=== PATIENT | male | born 1960 | race Caucasian/White ===

== ENCOUNTER 2018-03-09 20:46 | Emergency (ER) | payer OTHER ==
[2018-03-09 21:13] VITALS: BP 123/64
[2018-03-09] MEDS ORDERED: Ondansetron INJ* 2 MG/ML VIAL IV ONE (21:50)
[2018-03-09] MEDS ORDERED: Ondansetron INJ* 2 MG/ML VIAL IM ONE (21:59)
--- NOTE | 2018-03-09 22:07 | ED ---
Nausea/Vomiting/Diarrhea HPI - HPI Summary HPI Summary: 58 yo WM h/o hypothyroidism and DM c/o nausea and vomiting x 4 episodes today associated with chills, denies diarrhea - History of Current Complaint Chief Complaint: UCGI Stated Complaint: VOMITING Time Seen by Provider: 03/09/18 21:41 Hx Obtained From: Patient Hx From Patient Unobtainable Due To: Other Onset/Duration: Sudden Onset Severity Initially: Moderate Severity Currently: Moderate Pain Intensity: 4 - Allergies/Home Medications Allergies/Adverse Reactions: Allergies Allergy/AdvReac Type Severity Reaction Status Date / Time No Known Allergies Allergy Verified 03/09/18 21:13 Home Medications: Home Medications Allergy Med* 03/09/18 [History] Cholecalciferol (Vitamin D3) [Vitamin D3] 03/09/18 [History] Cyanocobalamin TAB* [Vitamin B12 TAB*] 03/09/18 [History] Gabapentin CAP(*) [Neurontin 100 mg CAP(*)] 600 mg PO BEDTIME 03/09/18 [History Confirmed 03/09/18] Levothyroxine TAB* [Synthroid 125 MCG TAB*] 125 mcg PO DAILY 03/09/18 [History Confirmed 03/09/18] Melatonin 03/09/18 [History] Multivitamin [Multivitamins] 1 cap PO DAILY 03/09/18 [History Confirmed 03/09/18 ] Naproxen Sodium [Aleve] 03/09/18 [History Confirmed 03/09/18] PMH/Surg Hx/FS Hx/Imm Hx Previously Healthy: Yes Endocrine/Hematology History: Reports: Hx Diabetes Cardiovascular History: Denies: Hx Hypertension, Hx Pacemaker/ICD Respiratory History: Denies: Hx Asthma History: Denies: Hx Dialysis, Hx Renal Disease Sensory History: Denies: Hx Hearing Aid Psychiatric History: Denies: Hx Panic Disorder Infectious Disease History: No Infectious Disease History: Denies: Traveled Outside the [place] in Last 30 Days - Social History Alcohol Use: Occasionally Substance Use Type: Reports: None Smoking Status (MU): Never Smoked Tobacco Review of Systems Positive: Chills Eyes: Negative ENT: Negative Cardiovascular: Negative Respiratory: Negative Positive: Vomiting, Nausea. Negative: Abdominal Pain, Diarrhea Genitourinary: Negative Musculoskeletal: Negative Skin: Negative Neurological: Negative All Other Systems Reviewed And Are Negative: Yes Physical Exam Triage Information Reviewed: Yes Vital Signs On Initial Exam: Initial Vitals Temp Pulse Resp BP Pulse Ox 37.1 C 90 16 123/64 96 03/09/18 21:08 03/09/18 21:08 03/09/18 21:08 03/09/18 21:08 03/09/18 21:08 Vital Signs Reviewed: Yes Appearance: Positive: No Pain Distress Skin: Positive: Warm Eyes: Positive: Normal ENT: Positive: Normal ENT inspection Neck: Positive: Supple Respiratory/Lung Sounds: Positive: Clear to Auscultation Cardiovascular: Positive: Normal Abdomen Description: Positive: Nontender, Soft Musculoskeletal: Positive: Normal Neurological: Positive: Normal AVPU Assessment: Alert Diagnostics - Vital Signs Vital Signs Temp Pulse Resp BP Pulse Ox 03/09/18 21:08 37.1 C 90 16 123/64 96 - Laboratory Lab Statement: Any lab studies that have been ordered have been reviewed, and results considered in the medical decision making process. Naus/Vom/Diarrhea Course/Dx - Course Course Of Treatment: acute nausea and vomiting may be associated with acute virally mediated GI organism. Symptomatic tx for now and RTC if sx worsen Discharge - Sign-Out/Discharge Documenting (check all that apply): Discharge/Admit/Transfer - Discharge Plan Condition: Stable Disposition: HOME Prescriptions: Ondansetron ODT TAB* [Zofran 4 MG Odt TAB*] 4 mg PO Q6H PRN 5 Days #20 tab.odt PRN Reason: Nausea Patient Education Materials: Acute Nausea and Vomiting (ED) Referrals: Trung Mari MD [Primary Care Provider] - - Billing Disposition and Condition Condition: STABLE Disposition: HOME
[2018-03-09] MEDS ORDERED: Ondansetron ODT TAB* 4 MG SL ONE (22:08)
== END 2018-03-09 22:24 | disposition home or self-care (01) ==
LOC: UCEAST 20:46
DX: R11.2 Nausea with vomiting, unspecified (principal); R68.83 Chills (without fever); E11.9 Type 2 diabetes mellitus without complications; E03.9 Hypothyroidism, unspecified
CPT/HCPCS: 99212; A9270-GY; G0463; J2405

== ENCOUNTER 2019-06-15 23:52 | Observation (INO) | payer OTHER ==
[2019-06-16] MEDS ORDERED: NS 0.9% 1000 ML** 2,000 ML IV ONE ×2 (00:05→00:57)
[2019-06-16] MEDS ORDERED: Ondansetron ODT TAB* 4 MG SL ONE (00:07)
[2019-06-16] MEDS ORDERED: Aspirin 81 mg CHEW TAB* 81 MG TAB.CHEW PO ONE ×2 (00:08→00:17)
[2019-06-16] MEDS ORDERED: Nitroglycerin TAB 0.4 MG* 0.4 MG TAB SL ONE (00:08)
--- NOTE | 2019-06-16 00:09 | ED ---
HPI Chest Pain - HPI Summary HPI Summary: This pt is a 59 y/o male presenting to [facility] via EMS for left sided chest pain today. Pt reports he began to have nausea and vomiting at around 19:00. After vomiting he began to experience pain on the left shoulder that was more of an ache. His pain then began moving down to the left anterior chest. He notes this pain was more intense. He notes his pain radiates down his left arm and neck. Pt states he has some abd soreness. PMHx DM, hypothyroid, CML (currently on Gleevec). Pt denies smoking. - History of Current Complaint Time Seen by Provider: 06/15/19 23:56 Hx Obtained From: Patient Onset/Duration: Started Hours Ago, Still Present Timing: Lasting Hours Current Severity: Moderate Pain Intensity: 7 Pain Scale Used: 0-10 Numeric Chest Pain Location: Left Anterior Chest Pain Radiates: Yes Chest Pain Radiates To:: Arm - left, Neck - left Aggravating Factor(s): Nothing Alleviating Factor(s): Nothing Associated Signs and Symptoms: Positive: Chest Pain, Nausea, Abdominal Pain, Vomiting. Negative: Fever, Chills - Allergy/Home Medications Allergies/Adverse Reactions: Allergies Allergy/AdvReac Type Severity Reaction Status Date / Time No Known Allergies Allergy Verified 03/09/18 21:13 Home Medications: Home Medications Allopurinol TAB* [Zyloprim 300 MG TAB*] 300 mg PO BID 06/16/19 [History Confirmed 06/16/19] Aspirin EC TAB* [Ecotrin EC Low Dose 81 MG*] 81 mg PO DAILY 06/16/19 [History Confirmed 06/16/19] Cetirizine* [ZyrTEC 10 MG TAB*] 10 mg PO DAILY PRN 06/16/19 [History Confirmed 06/16/19] Imatinib Mesylate 400 mg PO DAILY 06/16/19 [History Confirmed 06/16/19] PMH/Surg Hx/FS Hx/Imm Hx Endocrine/Hematology History: Reports: Hx Diabetes, Hx Thyroid Disease - Hypothyroidism Cardiovascular History: Denies: Hx Hypertension, Hx Pacemaker/ICD Respiratory History: Denies: Hx Asthma History: Denies: Hx Dialysis, Hx Renal Disease Sensory History: Denies: Hx Hearing Aid Psychiatric History: Denies: Hx Panic Disorder - Cancer History Cancer Type, 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 Father with emphysema (smoker) - Social History Alcohol Use: Occasionally Substance Use Type: Reports: None Smoking Status (MU): Never Smoked Tobacco Review of Systems Negative: Fever Positive: Chest Pain Positive: Abdominal Pain, Vomiting, Nausea All Other Systems Reviewed And Are Negative: Yes Physical Exam - Summary Physical Exam Summary: Appearance: Somewhat ill appearing man lying in the stretcher in no acute distress Skin: Warm, dry, no obvious rash Eyes: sclera anicteric, no conjunctival pallor ENT: mucous membranes moist, pharynx appears normal Neck: Supple, nontender Respiratory: Clear to auscultation, no signs of respiratory distress Cardiovascular: Normal S1, S2. No murmurs. Normal distal pulses in tibial and radial bilaterally. Abdomen: Soft, nontender, normal active bowel sounds present Musculoskeletal: Normal, Strength/ROM Intact Neurological: A&Ox3, awake and alert, mentation is normal, speech is fluent and appropriate Psychiatric: affect is normal, does not appear anxious or depressed Triage Information Reviewed: Yes Vital Signs On Initial Exam: Initial Vitals Temp Pulse Resp BP Pulse Ox 98.8 F 89 16 110/46 99 06/15/19 23:54 06/15/19 23:54 06/15/19 23:54 06/15/19 23:54 06/15/19 23:54 Vital Signs Reviewed: Yes Diagnostics - Vital Signs Vital Signs Temp Pulse Resp BP Pulse Ox 06/15/19 23:54 98.8 F 89 16 110/46 99 - Laboratory Result Diagrams: 06/16/19 00:02 06/16/19 04:48 Lab Statement: Any lab studies that have been ordered have been reviewed, and results considered in the medical decision making process. - Radiology Chest XR Radiology Interpretation Completed By: ED Physician Summary of Radiographic Findings: No acute process. - CT Chest CTA CT Interpretation Completed By: Radiologist Summary of CT Findings: IMPRESSION: No aortic dissection or aneurysm. Dr. Edward has reviewed this report. Abdomen CTA CT Interpretation Completed By: Radiologist Summary of CT Findings: IMPRESSION: 1. No abdominal aortic aneurysm or dissection. 2. Narrowing of the proximal celiac artery. 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 Dr. Edward has reviewed this report. - EKG 23:51 Cardiac Rate: NL - at 91 bpm EKG Rhythm: Sinus Rhythm Summary of EKG Findings: NSR at 91 BPM, P waves, QRS complex, and T waves are within normal limits, T waves and intervals are normal, no ischemic changes. This is a normal EKG. Re-Evaluation - Re-Evaluation First Eval Re-Evaluation Time: 00:56 Change: Worse Comment: Patient is still having pain in the chest, from the diaphragm up to his neck in the mid chest. Blood pressure has dropped significantly. Will order CTA of chest for signs of aortic dissection. Chest Pain Course/Dx - Course Assessment/Plan: Pt is a 59 y/o male presenting to [facility] via EMS for left sided chest pain today. Pt reports he began to have nausea and vomiting at around 19: 00. After vomiting he began to experience pain on the left shoulder that was more of an ache. His pain then began moving down to the left anterior chest. Lab results remarkable for WBC of 12.2, hemoglobin of 10.1, hematocrit of 31, creatinine of 1.52, glucose of 527. Chest/Abdomen CTA shows No aortic dissection or aneurysm and 1. No abdominal aortic aneurysm or dissection. 2. Narrowing of the proximal celiac artery. 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 Discussed the case with Dr. Blackburn, hospitalist, who accepted the pt for admission. - Diagnoses Provider Diagnoses: Chest pain, Hypotension - Provider Notifications Discussed Care Of Patient With: Bonita Blackburn - hospitalist Time Discussed With Above Provider: 03:15 Instructed by Provider To: Admit As Inpatient - Critical Care Time Critical Care Time: 30-74 min Discharge - Sign-Out/Discharge Documenting (check all that apply): Patient Departure - Admit to [facility] [place] Patient Received Moderate/Deep Sedation with Procedure: No - Discharge Plan Condition: Stable Disposition: ADMITTED TO [facility] - Billing Disposition and Condition Condition: STABLE Disposition: Admitted to [facility] - Attestation Statements Document Initiated by Scribe: Yes Documenting Scribe: Essence Lyn Provider For Whom Scribe is Documenting (Include Credential): Bernardo Edward MD Scribe Attestation: Essence Garcia, scribed for Bernardo Edward MD on 06/17/19 at 0609. Scribe Documentation Reviewed: Yes Provider Attestation: The documentation as recorded by the elizabethibe, Essence Lyn accurately reflects the service I personally performed and the decisions made by me, Bernardo Edward MD Status of [place] Document: Viewed
[2019-06-16 00:18] LABS: ABS Lymphocytes 0.7 10^3/ul (1.0-4.8); ABS Monocytes 1.5 10^3/ul (0-0.8); ABS Neutrophils 9.9 10^3/ul (1.5-7.7); Hematocrit 31 % (42-52); Hemoglobin 10.1 g/dL (14.0-18.0); Mean Corpuscular HGB Conc 32 g/dL (31-36); Mean Corpuscular Hemoglobin 29 pg (27-31); Mean Corpuscular Volume 88 fL (80-94); Mean Platelet Volume 7.7 fL (7.4-10.4); Platelet Count 145 10^3/uL (150-450); Red Blood Count 3.52 10^6 /uL (4.18-5.48); Red Cell Distribution Width 21 % (10-15); White Blood Count 12.2 10^3/uL (3.5-10.8)
[2019-06-16] MEDS ORDERED: Ondansetron INJ* 2 MG/ML VIAL IV ONE (00:20)
[2019-06-16 00:25] LABS: INR 1.04 (0.82-1.09)
[2019-06-16 00:29] LABS: Albumin 4.2 g/dL (3.2-5.2); Albumin/Globulin Ratio 1.8 (1-3); BUN/Creatinine Ratio 17.8 (8-20); Calcium 9.3 mg/dL (8.6-10.3); EGFR African American 56.7 (>60); EGFR Non-African American 46.9 (>60); Globulin 2.3 g/dL (2-4); Potassium 4.9 mmol/L (3.5-5.0); Total Protein 6.5 g/dL (6.4-8.9)
[2019-06-16 00:31] LABS: Troponin I 0.01 ng/mL (<0.04)
[2019-06-16] MEDS ORDERED: Insulin LISPRO* 1 UNITS UNIT SUBCUT ONE (00:34)
[2019-06-16] MEDS ORDERED: Dextrose 50% VIAL 50 ml IV PUSH PRN ×2 (00:34→05:50)
[2019-06-16] MEDS ORDERED: Iodixanol* (CONTRAST) 320 MG/ML 100 ML SDV IV ONE (01:11)
[2019-06-16 02:53] LABS: Troponin I 0.01 ng/mL (<0.04)
[2019-06-16] MEDS ORDERED: Ondansetron INJ* 2 MG/ML VIAL IV PRN (04:39)
[2019-06-16] MEDS ORDERED: PROCHLORPERAZINE INJ 5 MG/ML 2 ML VIAL IV PRN (04:39)
[2019-06-16] MEDS ORDERED: Melatonin 3 MG TAB PO PRN (04:44)
[2019-06-16] MEDS ORDERED: Lactated Ringers 1000 ML Bag* 1,000 ML IV SCH (05:00)
[2019-06-16] MEDS ORDERED: Insulin IVPB 100 units/100 ml 100 UNITS/100 ML UNIT IV SCH (05:00)
[2019-06-16] MEDS ORDERED: Insulin GLARGINE(*) 1 UNITS UNIT SUBCUT SCH ×3 (06:00→21:00)
[2019-06-16 06:05] LABS: BUN/Creatinine Ratio 20.3 (8-20); EGFR African American 66.1 (>60); EGFR Non-African American 54.7 (>60)
--- NOTE | 2019-06-16 07:50 | PN ---
Subjective Date of Service: 06/16/19 Interval History: HD # 1 on 06/16/19 59M PMH IDDM, hypothyroidism, CML on Gleevac who presented with acute onset N/V accompanied by L sided chest pain. IN ER mild DKA, pt also believes his insulin pump to be malfunctioning, also CTA Chest neg, Abdomen shows incidental finding of ? median arcute, unlikely to contribute to his current presentation, trops neg, he was admitted for CP r/o and tx of his hypergly. Interim, BMP now looks much improved no current gap VSS This morning feeling better, no residual chest pain, reviewed plan, will go for stress, spoke with Dr. Mcadams who left recommendations to Start Lantus 20 U and carb counting per usual on d/c while he trouble shoots with [employer] re pump. Pt himself otherwise doing OK,no other issues no N no CP no SOB. Objective Active Medications: Allopurinol (Zyloprim Tab*) 300 mg PO BID MALIK Aspirin (Aspirin Ec Tab*) 81 mg PO DAILY [facility] Dextrose (Dextrose 50% Vial 50 Ml*) 25 ml IV PUSH .FOR FS < 60 - SS PRN PRN Reason: FS < 60 Enoxaparin Sodium (Lovenox(*)) 40 mg SUBCUT Q24H [facility] Gabapentin (Neurontin Cap(*)) 600 mg PO BEDTIME [facility] Lactated Ringer's (Lactated Ringers 1000 Ml Bag*) 1,000 mls @ 125 mls/hr IV PER RATE [facility] Last Admin: 06/16/19 06:24 Dose: 125 mls/hr Imatinib Mesylate (Gleevec (Nf)) 400 mg PO DAILY [facility] Insulin Glargine (Lantus(*)) 8 units SUBCUT Q24H [facility] Last Admin: 06/16/19 06:23 Dose: 8 units Insulin Human Lispro (Humalog*) 0 units SUBCUT ACHS [facility]; Protocol Levothyroxine Sodium (Synthroid Tab*) 125 mcg PO DAILY@0600 [facility] Melatonin (Melatonin) 3 mg PO BEDTIME PRN PRN Reason: SLEEP Ondansetron HCl (Zofran Inj*) 4 mg IV Q6H PRN PRN Reason: NAUSEA Prochlorperazine Edisylate (Compazine Inj*) 10 mg IV Q6H PRN PRN Reason: nausea not relieved by zofran Additional Medications: Pleasant man in NAD Vital Signs - 8 hr 06/15/19 06/15/19 06/16/19 23:54 23:59 00:05 Temperature 98.8 F Pulse Rate 89 89 86 Respiratory 16 11 19 Rate Blood Pressure 110/46 110/46 (mmHg) O2 Sat by Pulse 99 100 100 Oximetry 06/16/19 06/16/19 06/16/19 00:27 00:29 00:32 Temperature Pulse Rate 87 90 87 Respiratory 15 13 16 Rate Blood Pressure 90/45 88/37 90/40 (mmHg) O2 Sat by Pulse 98 98 97 Oximetry 06/16/19 06/16/19 06/16/19 00:36 00:42 00:43 Temperature Pulse Rate 80 82 82 Respiratory 14 12 14 Rate Blood Pressure 77/35 80/36 81/37 (mmHg) O2 Sat by Pulse 100 98 100 Oximetry 06/16/19 06/16/19 06/16/19 00:47 00:50 00:52 Temperature Pulse Rate 81 80 82 Respiratory 12 17 21 Rate Blood Pressure 79/37 83/38 71/39 (mmHg) O2 Sat by Pulse 100 100 100 Oximetry 06/16/19 06/16/19 06/16/19 01:00 01:03 01:07 Temperature Pulse Rate 89 86 83 Respiratory 13 15 19 Rate Blood Pressure 89/39 88/37 (mmHg) O2 Sat by Pulse 99 99 99 Oximetry 06/16/19 06/16/19 06/16/19 01:12 01:17 01:35 Temperature Pulse Rate 81 81 102 Respiratory 18 24 26 Rate Blood Pressure 86/39 83/36 128/58 (mmHg) O2 Sat by Pulse 100 97 Oximetry 06/16/19 06/16/19 06/16/19 01:40 01:45 01:50 Temperature Pulse Rate 85 84 84 Respiratory 20 15 17 Rate Blood Pressure 110/49 110/49 108/48 (mmHg) O2 Sat by Pulse 96 97 96 Oximetry 06/16/19 06/16/19 06/16/19 01:55 02:00 02:01 Temperature Pulse Rate 84 90 85 Respiratory 10 17 13 Rate Blood Pressure 108/53 125/58 (mmHg) O2 Sat by Pulse 97 95 97 Oximetry 06/16/19 06/16/19 06/16/19 02:05 02:10 02:15 Temperature Pulse Rate 85 85 85 Respiratory 24 18 12 Rate Blood Pressure 113/55 107/54 111/56 (mmHg) O2 Sat by Pulse 96 96 97 Oximetry 06/16/19 06/16/19 06/16/19 02:20 02:25 02:31 Temperature Pulse Rate 86 90 89 Respiratory 9 12 21 Rate Blood Pressure 122/58 112/54 123/71 (mmHg) O2 Sat by Pulse 95 95 97 Oximetry 06/16/19 06/16/19 06/16/19 02:36 02:40 02:45 Temperature Pulse Rate 87 88 Respiratory 13 20 26 Rate Blood Pressure 124/85 124/55 115/56 (mmHg) O2 Sat by Pulse 95 95 Oximetry 06/16/19 06/16/19 06/16/19 02:50 02:55 03:00 Temperature Pulse Rate 84 83 83 Respiratory 13 18 15 Rate Blood Pressure 112/55 115/57 114/59 (mmHg) O2 Sat by Pulse 95 96 94 Oximetry 06/16/19 06/16/19 06/16/19 03:05 03:10 03:15 Temperature Pulse Rate 90 86 84 Respiratory 6 2 7 Rate Blood Pressure 113/60 111/60 106/57 (mmHg) O2 Sat by Pulse 95 94 93 Oximetry 06/16/19 06/16/19 06/16/19 03:20 03:25 03:30 Temperature Pulse Rate 84 88 93 Respiratory 10 9 13 Rate Blood Pressure 107/56 108/57 111/55 (mmHg) O2 Sat by Pulse 93 95 95 Oximetry 06/16/19 06/16/19 06/16/19 03:35 03:40 03:45 Temperature Pulse Rate 94 91 89 Respiratory 10 9 21 Rate Blood Pressure 111/58 104/62 97/58 (mmHg) O2 Sat by Pulse 93 94 94 Oximetry 06/16/19 06/16/19 06/16/19 03:50 03:55 04:00 Temperature Pulse Rate 88 96 90 Respiratory 22 19 18 Rate Blood Pressure 94/60 95/58 98/60 (mmHg) O2 Sat by Pulse 95 95 95 Oximetry 06/16/19 06/16/19 06/16/19 04:05 04:10 04:15 Temperature Pulse Rate 95 99 99 Respiratory 13 14 16 Rate Blood Pressure 107/61 102/63 115/63 (mmHg) O2 Sat by Pulse 95 96 96 Oximetry 06/16/19 06/16/19 06/16/19 04:20 04:25 04:31 Temperature Pulse Rate 98 100 101 Respiratory 15 25 22 Rate Blood Pressure 114/62 118/65 109/57 (mmHg) O2 Sat by Pulse 96 94 95 Oximetry 06/16/19 06/16/19 06/16/19 04:36 04:41 04:46 Temperature Pulse Rate 90 92 91 Respiratory 1 19 10 Rate Blood Pressure 108/57 101/59 107/61 (mmHg) O2 Sat by Pulse 95 94 94 Oximetry 06/16/19 06/16/19 06/16/19 04:51 04:56 05:00 Temperature Pulse Rate 91 93 89 Respiratory 3 4 0 Rate Blood Pressure 101/58 105/59 (mmHg) O2 Sat by Pulse 94 94 94 Oximetry 06/16/19 06/16/19 06/16/19 05:01 05:06 05:11 Temperature Pulse Rate 93 92 89 Respiratory 0 0 1 Rate Blood Pressure 97/57 96/56 96/55 (mmHg) O2 Sat by Pulse 94 94 94 Oximetry 06/16/19 06/16/19 06/16/19 05:16 05:21 05:26 Temperature Pulse Rate 89 100 Respiratory 5 5 25 Rate Blood Pressure 98/55 96/56 120/56 (mmHg) O2 Sat by Pulse 94 94 Oximetry 06/16/19 06/16/19 06/16/19 05:31 05:36 05:41 Temperature Pulse Rate 93 91 86 Respiratory 6 22 2 Rate Blood Pressure 111/57 119/54 105/52 (mmHg) O2 Sat by Pulse 95 95 94 Oximetry 06/16/19 06/16/19 06/16/19 05:46 05:51 05:56 Temperature Pulse Rate 92 88 89 Respiratory 24 23 23 Rate Blood Pressure 100/47 109/51 98/48 (mmHg) O2 Sat by Pulse 94 94 93 Oximetry 06/16/19 06/16/19 06/16/19 06:00 06:01 06:06 Temperature Pulse Rate 89 85 83 Respiratory 14 23 0 Rate Blood Pressure 101/51 101/52 (mmHg) O2 Sat by Pulse 94 93 93 Oximetry 06/16/19 06/16/19 06/16/19 06:11 06:16 06:21 Temperature Pulse Rate 87 84 79 Respiratory 6 11 9 Rate Blood Pressure 97/51 97/52 100/59 (mmHg) O2 Sat by Pulse 93 93 94 Oximetry 08/02/19 08/02/19 08/02/19 06:26 06:31 06:36 Temperature Pulse Rate 85 86 83 Respiratory 27 21 23 Rate Blood Pressure 104/64 99/58 102/57 (mmHg) O2 Sat by Pulse 95 93 93 Oximetry 06/16/19 06/16/19 06/16/19 06:41 06:46 06:51 Temperature Pulse Rate 81 79 79 Respiratory 0 19 5 Rate Blood Pressure 99/56 102/60 103/61 (mmHg) O2 Sat by Pulse 94 94 94 Oximetry 06/16/19 06/16/19 06/16/19 06:56 07:00 07:01 Temperature Pulse Rate 82 90 83 Respiratory 7 12 0 Rate Blood Pressure 102/57 109/61 (mmHg) O2 Sat by Pulse 95 95 95 Oximetry 06/16/19 06/16/19 06/16/19 07:06 07:11 07:16 Temperature Pulse Rate 82 81 80 Respiratory 3 16 20 Rate Blood Pressure 100/60 97/58 96/55 (mmHg) O2 Sat by Pulse 93 95 93 Oximetry 06/16/19 06/16/19 07:21 07:26 Temperature 98.8 F Pulse Rate 79 79 Respiratory 12 15 Rate Blood Pressure 100/55 100/55 (mmHg) O2 Sat by Pulse 93 93 Oximetry Appearance: Pleasant man in NAD Eyes: No Scleral Icterus Ears/Nose/Mouth/Throat: NL Teeth, Lips, Gums, Clear Oropharnyx Neck: NL Appearance and Movements; NL JVP Respiratory: Symmetrical Chest Expansion and Respiratory Effort Cardiovascular: NL Sounds; No Murmurs; No JVD, RRR Abdominal: NL Sounds; No Tenderness; No Distention, No Hepatosplenomegaly Lymphatic: No Cervical Adenopathy Extremities: No Edema Skin: No Rash or Ulcers Neurological: Alert and Oriented x 3 Result Diagrams: 06/16/19 00:02 06/16/19 04:48 Assess/Plan/Problems-Billing Assessment: 59M PMH IDDM, hypothyroidism, CML on Gleevac who presented as a atypical CP r/o in the setting of early DKA from pump malfunction. - Patient Problems (1) Chest pain Current Visit: Yes Status: Acute Code(s): R07.9 - CHEST PAIN, UNSPECIFIED SNOMED Code(s): 99801860 Comment: -EKG and Troponin are reassuring, trend and proceed with stress given risk factors -Check A1C and Lipids -Possibly all from DKA and N/V, doubt incidental vascular findings on CTA are contributory. (2) DKA (diabetic ketoacidoses) Current Visit: Yes Status: Acute Code(s): E11.10 - TYPE 2 DIABETES MELLITUS WITH KETOACIDOSIS WITHOUT COMA SNOMED Code(s): 349651011 Comment: -Mild on admission, 2/2 to pump failure -Will consult to endocrine (called Law who recommend 20 U of Lantus daily on d/ c and SSI for carbs) -Rec 12 U lispro and 8 U lantus already, gap has closed (3) Insulin dependent diabetes mellitus Current Visit: Yes Status: Acute Code(s): E11.9 - TYPE 2 DIABETES MELLITUS WITHOUT COMPLICATIONS; Z79.4 - RETIREMENT (CURRENT) USE OF INSULIN SNOMED Code( s): 35398914 Comment: -Adjust insulin as per above, trouble shoot with [employer] (4) Hypothyroid Current Visit: Yes Status: Acute Code(s): E03.9 - HYPOTHYROIDISM, UNSPECIFIED SNOMED Code(s): 52827556 Comment: -Continue home meds (5) CML (chronic myelocytic leukemia) Current Visit: Yes Status: Acute Code(s): C92.10 - CHRONIC MYELOID LEUK, BCR /ABL-POSITIVE, NOT ACHIEVE REMIS SNOMED Code(s): 30736551 Comment: -Non contributory on gleevac (6) DVT prophylaxis Current Visit: Yes Status: Acute Code(s): Z29.9 - ENCOUNTER FOR PROPHYLACTIC MEASURES, UNSPECIFIED SNOMED Code(s): 654213896 Comment: -Lovenox (7) Full code status Current Visit: Yes Status: Acute Code(s): Z78.9 - OTHER SPECIFIED HEALTH STATUS SNOMED Code(s): 774611135 Status and Disposition: If stress neg d/c to home
[2019-06-16] MEDS ORDERED: Aspirin EC TAB* 81 MG TAB.EC PO SCH (09:00)
[2019-06-16] MEDS ORDERED: IMATINIB 400 MG PO SCH (09:00)
[2019-06-16] MEDS ORDERED: Allopurinol TAB* 300 MG PO SCH (09:00)
--- NOTE | 2019-06-16 09:18 | HP ---
CC: Dr. Mari; Dr. Mcadams * HISTORY AND PHYSICAL: DATE OF ADMISSION: 06/16/19 PRIMARY CARE PROVIDER: Dr. Mari. AUTOMATION CONTROLS SPECIALIST: Dr. Mcadams. CHIEF COMPLAINT: Nausea, vomiting, and chest pain. HISTORY OF PRESENT ILLNESS: Mr. Mathews is a 59-year-old male with a history of type 1 diabetes for almost the last 48 years, hypothyroidism, and CML who presents to the emergency room with complaints of the sudden onset of nausea, vomiting, and chest pain. The patient states that he woke up on the morning of 06/15/19 and checked his blood sugar. It was elevated at 229. He gave himself a bolus of insulin. He then ate a bowl of cereal for breakfast, took his medications, and again gave insulin to cover his cereal. However, while administering the insulin via his insulin pump to cover the cereal meal, his pump appeared to stop working. He states that he changed the pump tubing to cannula, his blood sugar again which is now over 300 and attempted to administer insulin again. At approximately 4 p.m., he went shopping. He did not eat lunch prior to this. He got back at around 7 p.m. and he felt his blood sugar was high. He checked this and covered with more insulin. When taking his purchases upstairs, he states that he broke out in a sweat. He felt as if he needed to have a very urgent bowel movement. While sitting on the toilet, he had a BM and urinated. He then suddenly began to feel like he is going to vomit. He vomited up bile x2. He felt hot and sweaty. He changed his clothes, tried to lie down. He continued to feel ill and vomited again. He checked his blood sugar. He thinks he covered himself with more insulin at that point. During this whole event, the patient developed initially chest discomfort at the base of his neck. He felt short of breath with this. He then noticed the discomfort spread to lower into his chest. Because of concerns of the chest pain and the persistent vomiting, he decided he was going to call the EMS to bring him to the emergency room. The patient went outside where it was cooler. He vomited again and called 911. The patient was brought to the emergency room, and upon arrival to the ER, the patient quickly became quite hypotensive with systolics in the 80s. The patient received 4 L of normal saline in the emergency room. His blood sugar was noted to be markedly elevated at 527. He received 12 units of Humalog. The patient had his pump on and reportedly running during his ER stay. The patient is concerned that his pump is not functioning properly at this time. In terms of the chest pain, the patient states again that this began at the base of his neck, then spread to lower into his chest. He states that it felt like a tightness. There was some burning quality as well. It also radiated into his left arm and up the left side of his neck into his jaw. PAST MEDICAL HISTORY: 1. Type 1 diabetes, diagnosed almost 48 years ago. 2. Hypothyroidism. 3. CML. 4. Depression. MEDICATIONS: 1. Aspirin 81 mg p.o. daily. 2. Zyrtec 10 mg p.o. daily p.r.n. allergies. 3. Gabapentin 600 mg p.o. q.h.s. 4. Melatonin 5 mg p.o. q.h.s. 5. Levothyroxine 125 mcg p.o. daily. 6. Allopurinol 300 mg p.o. b.i.d. 7. Zofran ODT 4 mg p.o. q.6 hours p.r.n. nausea. 8. Imatinib 400 mg p.o. daily. ALLERGIES: No known drug allergies. FAMILY HISTORY: Mom is living, she is 87. She has some sort of cardiac condition, depression, and hypothyroidism. Dad at the age of 81. He had dementia. SOCIAL HISTORY: The patient is a nonsmoker. He drinks alcohol on occasion. He worked building [employer]. He is not . He has no children. He indicates that his sister, Rupal Tolbert, would be his surrogate decision maker. REVIEW OF SYSTEMS: A complete 11-system review of systems was obtained. Pertinent positives and negatives are as per HPI, and in addition, the patient does state he has some shortness of breath with exertion recently. He did have shortness of breath, however, during the evening of 06/15/19 when he was having episodes of vomiting and chest discomfort. The rest of the review of systems is negative. PHYSICAL EXAMINATION GENERAL: The patient is a well-developed, middle-aged male seen lying in the stretcher, in no acute distress. VITAL SIGNS: Blood pressure 115/75, pulse 83, respirations 18, temp 98.8, O2 sat 96% on room air. HEENT: Pupils are equal and round. Extraocular muscles are intact. Oropharynx is clear. Oral mucosa is dry. NECK: There is no submandibular, cervical, or supraclavicular adenopathy. Thyroid is not enlarged. No thyroid nodules are noted. PULMONARY: Lungs are clear to auscultation bilaterally. CARDIAC: Normal S1, S2. Heart rate is mildly tachycardic. There is no lower extremity edema. ABDOMEN: Bowel sounds present. Abdomen is soft, nontender, nondistended. MUSCULOSKELETAL: There is no cyanosis or clubbing of the digits. There is full active range of motion of all 4 extremities. NEUROLOGIC: Cranial nerves II through XII are grossly intact. Sensation is intact to light touch throughout. Strength is 5/5 and symmetric in both upper and lower extremities bilaterally. SKIN: Warm and dry. There is an almost petechial-appearing rash noted on the patient's nose and in the nasolabial fold area. PSYCH: The is alert. He is oriented x3. Affect appears appropriate. DIAGNOSTIC STUDIES/LAB DATA: WBC 12.2, hemoglobin 10.1, hematocrit 31, platelets 145. Sodium 134, potassium 4.9, chloride 95, CO2 of 19, anion gap 20 , BUN 27, creatinine 1.52, glucose 527, calcium 9.3. Bilirubin 1.0, AST 24, ALT 19, alk phos 134. Troponin 0.01 x2. Albumin 4.2. EKG reveals sinus tachycardia without any acute ST-T wave abnormalities. Chest x-ray to my interpretation shows possible hyperinflation. No focal infiltrates are noted. CTA chest and abdomen: There is no pulmonary consolidation. There are linear opacities located in the lung bases which may represent areas of atelectasis and /or scarring. There is no aortic dissection or aneurysm. There is no abdominal aortic aneurysm or dissection. There is narrowing of the proximal celiac artery. 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 ASSESSMENT AND PLAN: Mr. Mathews is a 59-year-old male with longstanding history of type 1 diabetes, hypothyroidism, and CML who presents to the emergency room with sudden onset of nausea and vomiting in the setting of hyperglycemia all day as well as chest pain after the onset of the nausea and vomiting. 1. Mild diabetic ketoacidosis. At this point, my suspicion is the patient's nausea and vomiting is related to mild diabetic ketoacidosis. He appears to be volume deplete. He was markedly hypotensive initially in the emergency room. This did resolve after 4 L of normal saline. The patient's CO2 is low and his anion gap is quite elevated. The patient suspects his pump may not be functioning properly. He did receive 12 units of Humalog subcutaneous in the emergency room. At this point, I am going to have the patient disconnect his insulin pump. We will get repeat labs to evaluate his blood sugar and electrolytes and then start an insulin drip until his acidosis corrects. Fingersticks will be obtained q.1 hour with the results called to myself for instructions on how to adjust his drip. The patient's basal rate on his pump starts at midnight and is 0.45 units/hour until 0730, then increases to 0.5 units/hour for the rest of the day. The patient will need very close monitoring of his blood sugars and hopefully will be able to come off the insulin drips in a short period of time. 2. Elevated creatinine. The patient's baseline creatinine is in the 0.8 to perhaps 1.1 range. His creatinine today is elevated at 1.52. Again, he seems to be quite volume deplete requiring 4 L of normal saline to bring his blood pressure up to normal range. His elevated creatinine is likely prerenal in nature. Followup BMP will be obtained tomorrow. 3. Chest pain. The patient had significant chest pain while vomiting. It is unclear if the pain is related to the act of vomiting and irritation of the esophagus because of this. The patient, however, is at risk for coronary artery disease given his longstanding type 1 diabetes. The patient so far has had 2 negative troponins. We will obtain a third and then proceed with a chemical nuclear stress test as the patient does not believe that he will be able to walk on a treadmill. 4. Hypothyroidism. I am going to continue the patient's usual dose of Synthroid. 5. CML. I have ordered to continue the patient's imatinib. 6. DVT prophylaxis. According to the Adult Thrombosis Prophylaxis Risk Factor Assessment Guide, the patient has a total risk factor score of 2, making him moderate risk. He will be placed on Lovenox 40 mg subcutaneous daily. 7. Code status is full. TIME SPENT: Sixty-five minutes was spent admitting this patient. [id number]/[facility] #: [id number] MTDD
[2019-06-16] MEDS: Insulin LISPRO* 1 UNITS UNIT SUBCUT SCH ×3 (10:18→16:28)
[2019-06-16] MEDS ORDERED: Regadenoson* 0.4 MG/5 ML SYRINGE ONE (10:43)
--- NOTE | 2019-06-16 14:06 | DS ---
CC: Dr. Trung Mari; Dr. Srini Mcadams DISCHARGE SUMMARY: DATE OF ADMISSION: 06/16/19 DATE OF DISCHARGE: 06/16/19 PRIMARY CARE PROVIDER: Dr. Trung Mari. LCAC OPERATOR: Dr. Srini Mcadams. DISPOSITION AT THE TIME OF DISCHARGE: Stable to home. MEDICATIONS AT THE TIME OF DISCHARGE: 1. Lantus 7 units subcutaneous b.i.d. 2. Humalog via sliding scale for carb counting. 3. Allopurinol 300 mg p.o. b.i.d. 4. Aspirin 81 mg p.o. daily. 5. Gabapentin 600 mg p.o. q.h.s. 6. Gleevec 400 mg p.o. daily. 7. Levothyroxine 125 mcg p.o. daily. 8. Cetirizine 10 mg p.o. daily. 9. Melatonin 5 mg p.o. q.h.s. Medication changes on this admission are the addition of Lantus for long-acting [facility]. PRIMARY DIAGNOSES: 1. Atypical chest pain. 2. Early diabetic ketoacidosis. SECONDARY DIAGNOSES: 1. Type 1 diabetes, pump dependent. 2. Chronic myelogenous leukemia, on Gleevec. 3. Hypothyroidism. HISTORY OF PRESENT ILLNESS AND HOSPITAL COURSE: A 59-year-old male with past medical history of insu jonelle-dependent diabetes, on pump; hypothyroidism; CML, on Gleevec, who presented with acute onset naus ea and vomiting accompanied by left- sided chest pain. The patient reported that earlier in the day his pump was not delivering insulin as per instructions. He tried changing out the cartridges as wel l as the injection site, although there seemed to be no insulin coming from his pump into his skin. He assumed that the site change would fix the problem, but later in the afternoon, he started having dull left chest pain associated with nausea and vomiting, all acutely happening at the same time. He vomited once and then continued to have left-sided chest pain across the sternum. [facility] An EKG was done, which was normal. Labs were done, which showed that the patient was in mild DKA with an anion gap of 20 and [id number] glucose was 527. Troponin was 0. The pat ient was given Lantus as well as Humalog in the emergency room and admitted for workup of atypical ch est pain along with management of early DKA with fluids. His hospital course by problem is as follows: 1. Atypical chest pain. The patient had chest pain along with nausea and vomiting and once blood gl ucose improved as well as symptomatic nausea was treated, chest pain resolved. His troponin was 0. His EKG was negative. He is moderate risk and thus he was stress tested. A nuclear medicine stress test was done, which was low risk for ischemic event. He is already optimized on aspirin. He should be optimized on statin given his diabetic status and this can be discussed with primary care. 2. Nausea and vomiting. This was most likely secondary sequelae to his early DKA in the setting of pump failure. Of note, he does have an incidental finding on his CT abdomen and pelvis which was don e in the emergency room, which showed some compression of celiac vessel from possible ? median arcuat e ligament syndrome. The patient does not have recurrent episodes of abdominal pain or vomiting, whi ch is not consistent with this overall clinical syndrome and seems more consistent with an incidental radiologic finding of an anatomical variant which produces no symptoms. 3. Early diabetic ketoacidosis. The patient had pump failure and came in with anion gap acidosis as well as hyperglycemia and evidence of ketones. He was treated with insulin and fluids and closed hi s gap. He was able to tolerate diet and his aircraft worker Dr. Srini Mcadams was consulted during this h ospitalization, who recommended that the patient be converted back to Lantus 7 units b.i.d. along wit h carb counting for his short-acting insulin and to call [employer] and troubleshoot, to order for re peat equipment for pump. 4. Hypothyroidism. Home medications continued. 5. Chronic myelogenous leukemia. Gleevec was continued. On the day of discharge, the patient is tolerating diet, ambulating without complications, and is abl e to test and control blood sugars safely on his own. He is prescribed Lantus and it is confirmed wi th the pharmacy he is able to receive this today. He has Humalog and testing supplies at home. 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 As per hospital course above, this is likely an incidental finding. Also CTA of the chest was done, which showed no aortic dissection or aneurysm. Chest x-ray was done, which showed no acute intracardiac disease. EKG was done, which showed normal sinus rhythm. A nuclear medicine stress scan was done on 06/16/19, which showed low risk for probable ischemia. Labs repeated from emergency room show glucose improved to 260 from 527, anion gap of 7, carbon dioxi de of 22, potassium of 4, sodium of 136; effectively normal other than the exception of mild hypergly cemia. Urinalysis was done and results are still pending, although the patient has no urinary sympto ms. ITEMS TO FOLLOW UP ON STATUS POST DISCHARGE: 1. Pump failure. The patient has [employer] pump and it appears to be not loading insulin into the a mpule. I spoke with Dr. Srini Mcadams, the patient's aircraft worker, who recommended that the patient tr [facility] through [employer], who will send the patient new equipment, until then take Lantus 7 unit s b.i.d. along with carb counting. He is well-versed in diabetes, has been a type 1 diabetic his who le life and is well controlled with an A1c of 8.5. 2. Atypical chest pain. This seems to be noncardiac in nature, most likely related to his early DKA and musculoskeletal pain associated with nausea and vomiting in the setting of early DKA. He is not on a statin. It is reasonable to consider one given his risk factors. TIME SPENT: 45 minutes was spent on the planning of this discharge with over half of that spent dire ctly at the bedside of the patient providing direct patient care. If there are any questions about the care of this patient during this hospitalization, please do not hesitate to reach out and contact us. [id number]/[facility] #: [id number]
[2019-06-16 16:32] VITALS: BP 106/56
[2019-06-16 16:50] LABS: Urine Appearance Cloudy; Urine Bacteria Absent (Absent); Urine Bilirubin Negative (Negative); Urine Blood 1+ (Negative); Urine Color Yellow; Urine Glucose 3+(>=500 mg/dL) (Negative); Urine Ketones 1+ (Negative); Urine Nitrite Negative (Negative); Urine Protein Negative (Negative); Urine Red Blood Cell Trace(0-2/hpf) (Absent); Urine Specific Gravity 1.038 (1.010-1.030); Urine Urobilinogen Negative (Negative); Urine White Blood Cell Trace(0-5/hpf) (Absent)
[2019-06-16] MEDS ORDERED: Enoxaparin(*) 40 MG/0.4 ML SYR SUBCUT SCH (21:00)
[2019-06-16] MEDS ORDERED: Gabapentin CAP(*) 300 MG PO SCH (21:00)
[2019-06-17] MEDS ORDERED: Levothyroxine TAB* 125 MCG TAB PO SCH (06:30)
== END 2019-06-16 17:00 | disposition home or self-care (01) ==
LOC: ED 23:52 → MEDTELE 06-16 04:39
PROVIDERS: ADMIT Hospitalist; ATTEND Hospitalist
DX: R07.89 Other chest pain (principal); R11.2 Nausea with vomiting, unspecified; T85.694A Other mechanical complication of insulin pump, initial encounter; E10.10 Type 1 diabetes mellitus with ketoacidosis without coma; Z79.4 Long term (current) use of insulin; Z96.41 Presence of insulin pump (external) (internal); R94.4 Abnormal results of kidney function studies; C92.10 Chronic myeloid leukemia, BCR/ABL-positive, not having achieved remission; E03.9 Hypothyroidism, unspecified; Z79.899 Other long term (current) drug therapy; Z79.82 Long term (current) use of aspirin
CPT/HCPCS: 36415; 71045; 71275; 74175; 78452; 80048; 80053; 81003; 81015; 82947; 83036; 84484; 85025; 85610; 87086; 93005; 93017; 96361; 96374; 99284; A9270-GY; A9502; G0378; J1815; J2405; J2785